=== PATIENT | female | born 1990 | race African-American/Black ===

== ENCOUNTER 2020-11-05 16:02 | Outpatient (CLI) | payer MEDICARE, OTHER ==
[2020-11-05 17:10] LABS: BHCG - Serum Negative (NEGATIVE); Pregs Control Background? CLEAR/WHITE (CLR/WHITE); Pregs Control Bar Appear? YES (CONTROL BAR)
[2020-11-05 17:14] LABS: Hemoglobin 15.4 g/dL (12.0-15.5); Mean Corpuscular HGB CONC 33.8 g/dL (32.0-36.0); Mean Corpuscular Hemoglobin 27.5 pg (27.0-33.0); Mean Corpuscular Volume 81.6 fl (81.6-98.3); Mean Platelet Volume 11.3 fl (7.4-10.4); Platelet Count 254 10x3/uL (150-450); RBC Distribution Width 14.4 % (11.5-14.5); Red Blood Cell (RBC) Count 5.59 10x6/uL (3.90-5.03); White Blood Cell (WBC) Count 9.2 10x3/uL (3.5-10.5)
[2020-11-06 02:15] LABS: SARS-CoV-2 PCR by NAA Not Detected (NotDetected)
== END 2020-11-05 16:03 | disposition home or self-care (01) ==
LOC: CSHLAB 16:02
PROVIDERS: ATTEND Obstetrics & Gynecology
DX: Z01.812 Encounter for preprocedural laboratory examination (principal); Z20.822 Contact with and (suspected) exposure to COVID-19; N92.0 Excessive and frequent menstruation with regular cycle
CPT/HCPCS: 84703; 85027; 86850; 86900; 86901; 87635; U0003; U0005

== ENCOUNTER 2020-11-10 15:22 | Day surgery (SDC) | payer MEDICARE, OTHER ==
[2020-11-06 15:44] VITALS: BMI 61.7
[~2020-11-10 15:22] MED LIST: CeleCOXIB 100 MG CAP ONE; Dexamethasone 4 mg/ml Vial ONE; Fentanyl 250 MCG/5 ML VIAL ONE; Ketorolac Tromethamine 30 MG/ML VIAL ONE; Lidocaine 1% MPF 2 ML VIAL ONE; Lidocaine 1% PF 5 ML VIAL ONE; Lidocaine 1% w/Epinephrine 1:100K 20 ML VIAL ONE; Midazolam HCl 2 mg/2 ml Vial ONE; Ondansetron PF 4 MG/2 ML Vial ONE; PHENYLEPHRINE-NS 100 MCG/ML 10 ML SYRINGE ONE; PROPOFOL 20 ML ONE; Succinylcholine 200 MG/10 ml SYRINGE FS ONE
== END 2020-11-10 15:45 | disposition home or self-care (01) ==
LOC: CSHSDC 15:22
PROVIDERS: ATTEND Obstetrics & Gynecology
PROC: 0UDB8ZX Extraction of Endometrium, Via Natural or Artificial Opening Endoscopic, Diagnostic (ICD-10-PCS; principal; 2020-11-10)
DX: N92.1 Excessive and frequent menstruation with irregular cycle (principal); I10 Essential (primary) hypertension; K21.9 Gastro-esophageal reflux disease without esophagitis; E66.9 Obesity, unspecified; Z68.44 Body mass index [BMI] 60.0-69.9, adult; Z79.899 Other long term (current) drug therapy
CPT/HCPCS: 88305; J0690; J1100; J1885; J2250; J2405; J2704; J3010